=== PATIENT | female | born 1975 | race Caucasian/White ===

== ENCOUNTER 2017-07-17 20:27 | Emergency (ER) | payer OTHER ==
[~2017-07-17] VITALS: Ht 157.5 cm; Wt 68.0 kg
[2017-07-17 20:28] VITALS: Ht 157.5 cm; Wt 68.0 kg
[2017-07-17] MEDS ORDERED: KETOROLAC 60 MG INJ IM STA (21:54)
[2017-07-17] MEDS ORDERED: IBUP-1542 PO (23:53)
[2017-07-17] MEDS ORDERED: TRAM50TA2 PO (23:53)
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
--- NOTE | 2017-07-17 23:57 | ERD ---
ER Documentation Chief Complaint Date/Time DATE: 07/17/17 TIME: 23:55 Chief Complaint c/o right arm pain and numbness x 1 month HPI This 42-year-old female presents with some pain and numbness in her right arm for last month. She points to her shoulder and wrist as the area of pain. She is seen her for the medical record in March for cervical radicular pain diagnosis. She denies any new trauma. 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 ROS All systems reviewed and are negative except as per history of present illness. Medications Home Meds Active Scripts Tramadol HCl (Tramadol HCl) 50 Mg Tablet, 50 MG PO Q4 Y for PAIN, #20 TAB Prov:PIA UNDERWOOD MD 07/17/17 Ibuprofen* (Motrin*) 600 Mg Tab, 600 MG PO Q6, #20 TAB Prov:PIA UNDERWOOD MD 07/17/17 Allergies Allergies: Coded Allergies: No Known Drug Allergy (Verified Allergy, Unknown, 06/03/07) PMhx/Soc Medical and Surgical Hx: pt denies Medical Hx, pt denies Surgical Hx History of Surgery: No (NO MEDICAL OR SURGICAL HX) Anesthesia Reaction: No Hx Neurological Disorder: No Hx Respiratory Disorders: No Hx Cardiac Disorders: No Hx Psychiatric Problems: No Hx Miscellaneous Medical Probl: No Hx Alcohol Use: No Hx Substance Use: No Hx Tobacco Use: No Smoking Status: Never smoker Physical Exam Vitals Vital Signs Date Time Temp Pulse Resp B/P Pulse Ox O2 Delivery O2 Flow Rate FiO2 07/17/17 20:28 98.0 84 16 144/76 98 Physical Exam Const: [], [id number] per Head: Atraumatic Eyes: Normal Conjunctiva ENT: Normal External Ears, Nose and Mouth. Neck: Full range of motion..~ No meningismus.. Neck nontender. Resp: Clear to auscultation bilaterally Cardio: Regular rate and rhythm, no murmurs Abd: Soft, non tender, non distended. Normal bowel sounds Skin: No petechiae or rashes Back: No midline or flank tenderness Ext: No cyanosis, or edema tenderness in the right rotator cuff and right wrist positive pain with Carlos test. There is no effusion, deformities, erythema or warmth. Neur: Awake and alert Psych: Normal Mood and Affect Results 24 hrs Current Medications Medications (Trade) Dose Ordered Sig/Volodymyr Route PRN Reason Start Time Stop Time Status Last Admin Dose Admin Ketorolac Tromethamine (Toradol) 60 mg ONCE STAT IM 07/17/17 21:54 07/17/17 21:55 DC 07/17/17 22:16 Procedures/MDM X-ray right shoulder 3V Interpreted by me: Bones: No fracture Joints: No dislocation Foreign body: None impression have a normal right shoulder x-ray X-ray right wrist 3V Interpreted by me: Scaphoid: [Normal] Bones: [No fracture] Joints: [No dislocation] Foreign body: [None] impression-normal right wrist x-ray Presents with signs and symptoms of right rotator cuff tendinitis and right wrist tendinitis. She is placed in right wrist Velcro brace and was neurovascular intact after the brace. She is given Toradol 60 mg IM and will be treated with ibuprofen, tramadol, instructions for range of motion to prevent stiffness, and ice at home as well as primary care follow-up and return precautions. No evidence to suggest bacterial infection, neurologic deficit, additional emergent causes of presenting complaints. The patient was stable with no new complaints during the ER course. Clinically, there is no current evidence to suggest meningitis, sepsis, acute abdomen, pneumonia, acute coronary syndrome, pulmonary embolism, or any other emergent condition appearing to require further evaluation or hospitalization. The patient should certainly return for any new or worsening symptoms per the aftercare instructions. They should otherwise follow-up with her primary care doctor for reevaluation this week. Disclaimer: Inadvertent spelling and grammatical errors are likely due to EHR/dictation software use and do not reflect on the overall quality of patient care. Also, please note that the electronic time recorded on this note does not necessarily reflect the actual time of the patient encounter. Departure Diagnosis: Primary Impression: Tendonitis Condition: Stable Patient Instructions: Shoulder Impingement Syndrome, Tendonitis Additional Instructions: X-rays show no acute abnormalities. See primary doctor and orthopedist for further evaluation. Apply ice at home. Do range of motion to prevent stiffness. Recheck otherwise for fevers, new symptoms. PIA UNDERWOOD MD Jul 17, 2017 23:57
[2017-07-18 00:09] VITALS: BP 127/70; PULSE 72; RESP 16; TEMP 98
== END 2017-07-18 00:10 | disposition home or self-care (01) ==
LOC: FTE 20:27
DX: M77.9 Enthesopathy, unspecified (principal)
CPT/HCPCS: 29125; 73030; 73110; 96372; J1885; Z7502

== ENCOUNTER 2018-02-04 16:59 | Emergency (ER) | END 2018-02-04 20:07 | disposition home or self-care (01) ==